=== PATIENT | male | born 1975 | race Caucasian/White ===

== ENCOUNTER 2019-08-08 10:17 | Emergency (ER) | payer BC ==
[~2019-08-08] VITALS: Ht 182.9 cm; Wt 90.0 kg
[2019-08-08] MEDS ORDERED: CYCLOBENZAPR5 MG PO (11:17)
[2019-08-08 12:00] VITALS: BP 139/79
== END 2019-08-08 12:00 | disposition home or self-care (01) | DRG 552 ==
LOC: ED 10:17
DX: M54.5 Low back pain (principal)